=== PATIENT | male | born 1960 | race Caucasian/White ===

== ENCOUNTER → 2017-01-19 | Outpatient (CLI) | payer OTHER | LOC: CAT 07:46 | DX: Z13.6 Encounter for screening for cardiovascular disorders (principal) ==

== ENCOUNTER → 2019-10-01 | Outpatient (CLI) | payer BC | LOC: SJCVCIMAG 12:53 | DX: I34.0 Nonrheumatic mitral (valve) insufficiency (principal); I25.10 Atherosclerotic heart disease of native coronary artery without angina pectoris; I10 Essential (primary) hypertension; E66.9 Obesity, unspecified ==

== ENCOUNTER → 2021-07-20 | Outpatient (CLI) | payer BC | LOC: SJCVCIMAG 09:23 | PROVIDERS: ATTEND Internal Medicine Cardiovascular Disease | DX: R94.31 Abnormal electrocardiogram [ECG] [EKG] (principal); I25.10 Atherosclerotic heart disease of native coronary artery without angina pectoris; R06.00 Dyspnea, unspecified; E11.9 Type 2 diabetes mellitus without complications; K21.9 Gastro-esophageal reflux disease without esophagitis; E78.5 Hyperlipidemia, unspecified; I10 Essential (primary) hypertension; G47.30 Sleep apnea, unspecified; Z82.49 Family history of ischemic heart disease and other diseases of the circulatory system; Z72.89 Other problems related to lifestyle ==

== ENCOUNTER → 2021-08-03 | Outpatient (CLI) | payer BC ==
[~2021-08-03] VITALS: Ht 172.7 cm; Wt 124.7 kg
[~2021-08-03] MED LIST: ASA81BEC PO; CINNAMON500 MG PO; COZAAR100 MG PO; DILTIAZEM ER240 M2 PO; FENOFIBRATE160 MG PO; FISH OIL 1,001000 M3 PO; GARLIC100 MG PO; LIPITOR 40 MG T40 M1 PO; METFORMIN HCL500 M3 PO; NEXIUM 40 MG CA40 M1 PO; SUPER THERAVIT1 EACH PO
[2021-08-03 08:35] VITALS: BP 128/75
--- NOTE | 2021-08-03 10:03 | EKG ---
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
--- NOTE | 2021-08-03 11:35 | CATHLAB ---
[facility] [place] [address] INVASIVE PROCEDURE REPORT Name: ZACHARY FLOYD Room #: REG [facility]#: [id number] Admission: 08/03/21 Attend Phys: Juan Miguel Frederick MD Discharge: Date of : 58 Report #: [id number] THIS REPORT FOR: cc: Tea Martinez MD, Julie MD Park, Jin S. 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 A PINNACLE 4FR Sheath #[id number] sheath was inserted into the RFA^. Coronary angiography was performed using coronary diagnostic catheters. The right coronary system was accessed and visualized with a JR4 catheter. The left coronary system was accessed and visualized with a JL4 catheter. The left ventricle was accessed and visualized with a JR4 catheter. Left ventricular/Aortic Valve gradient assessed via catheter pullback. Hemostasis was obtained with manual pressure following sheath removal without any complications. The patient tolerated the procedure well and there were no complications associated with the procedure. There was no hematoma. [facility] [address] [address] INVASIVE PROCEDURE REPORT Name: ZACHARY FLOYD Luis Room #: REG CL [facility]#: [id number] Admission: 08/03/21 Attend Phys: Juan Miguel Frederick MD Discharge: Date of : 58 Report #: [id number] Intraoperative Conscious Sedation Sedation start time: 09:28 Case end Time: 09:59 Fentanyl 50 mcg Versed 1 mg Fluoro Time: 2.70 minutes Dose: DAP 9812.60 cGycm2 1407 mGy Contrast Type and Amount: Omnipaque 55 ml Coronary Angiography The patient's coronary anatomy is right dominant. Diagnostic Cath Left Main The left main artery is a large-caliber vessel, appears angiographically normal. LAD The LAD is a moderate-sized caliber vessel, traverses the anterior wall and wraps around the apex. There is mild diffuse disease in the proximal segment, less than 20%. Diagonal 1 This is a small to moderate-sized caliber vessel with a mild to moderate proximal stenosis, 30 to 40%. Diagonal 2 This is a small to moderate-sized caliber vessel, patent with no flow-limiting lesions. Circumflex This is a moderate-sized caliber vessel, patent with no flow-limiting lesions. OM1 This is a small to moderate-sized caliber vessel, patent with no flow-limiting lesions. OM2 This is a small to moderate-sized caliber vessel, patent with no flow-limiting lesions. Right Coronary The RCA is a dominant vessel, with mild disease in the proximal segment, 10%. R PDA This is a small to moderate-sized caliber vessel, patent with no flow-limiting lesions. RPLV This is a moderate-sized caliber vessel, patent with no flow-limiting lesions. Left Ventriculography Left Ventriculography was not performed. Ejection Fraction was 60% based off patient's Nuclear Cardiac Stress Test. An LVEDP was measured and there is no gradient across the outflow tract. Hemodynamics The aortic pressure is 125/76 mmHg with a mean of 98 mmHg. The left ventricular pressure is 121/14 mmHg with a mean of mmHg. The left ventricular end diastolic pressure is [address] [facility] [address] [address] INVASIVE PROCEDURE REPORT Name: ZACHARY FLOYD Room #: REG [facility] [id number] Admission: 08/03/21 Attend Phys: Juan Miguel Frederick MD Discharge: Date of : 58 Report #: [id number] Conclusion 1. There is mild, nonobstructive disease in the LAD and first diagonal artery. 2. The RCA is a dominant vessel. 3. There is normal LV systolic function. 4. Recommend guideline directed medical therapy. <ELECTRONICALLY SIGNED> By: Juan Miguel Frederick MD 08/03/21 1134 1134 1134 Juan Miguel Frederick MD /INF
== END | disposition home or self-care (01) ==
LOC: CATH 07:36
PROVIDERS: ATTEND Internal Medicine Cardiovascular Disease
DX: R94.39 Abnormal result of other cardiovascular function study (principal); I25.10 Atherosclerotic heart disease of native coronary artery without angina pectoris; R06.00 Dyspnea, unspecified; I10 Essential (primary) hypertension; E11.9 Type 2 diabetes mellitus without complications; E78.00 Pure hypercholesterolemia, unspecified; E66.9 Obesity, unspecified; Z98.890 Other specified postprocedural states; Z79.899 Other long term (current) drug therapy; Z88.8 Allergy status to other drugs, medicaments and biological substances; Z79.82 Long term (current) use of aspirin